=== PATIENT | male | born 1955 ===

== ENCOUNTER 2023-07-14 05:15 | Day surgery (SDC) | payer OTHER | END 2023-07-14 12:20 | disposition home or self-care (01) | LOC: AMB-ENDOS 05:15 | PROVIDERS: ATTEND Surgery | DX: D12.2 Benign neoplasm of ascending colon (principal); K57.30 Diverticulosis of large intestine without perforation or abscess without bleeding; K92.1 Melena; Z20.822 Contact with and (suspected) exposure to COVID-19 ==

== ENCOUNTER 2024-08-05 05:22 | Day surgery (SDC) | payer OTHER ==
[2024-08-05] MEDS ORDERED: fentaNYL CITRATE 50 MCG/ML AMPUL IV PUSH ONE (11:15)
[2024-08-05] MEDS ORDERED: MIDAZOLAM HCL 2 MG/2 ML VIAL IV ONE (11:15)
[2024-08-05] MEDS ORDERED: DIPHENHYDRAMINE HCL 50 MG/ML VIAL 1ML IV ONE (11:15)
== END 2024-08-05 12:20 | disposition home or self-care (01) ==
LOC: AMB-ENDOS 05:22
PROVIDERS: ATTEND Surgery
DX: D12.0 Benign neoplasm of cecum (principal); K63.5 Polyp of colon